=== PATIENT | female | born 1980 | race Caucasian/White ===

== ENCOUNTER 2024-05-08 16:31 | Emergency (ER) | payer SELFPAY ==
[~2024-05-08] VITALS: Ht 162.6 cm; Wt 63.5 kg
[2024-05-08] MEDS ORDERED: CLIN-141 PO (16:45)
[2024-05-08] MEDS ORDERED: IBUP-2077 PO (16:45)
--- NOTE | 2024-05-08 16:45 | ERN ---
ED Note History of Present Illness Stated Complaint: TOOTH PAIN Chief Complaint: Tooth Ache/Pain Time Seen by MD: 16:37 Dictation: PATIENT IS A 43-YEAR-OLD FEMALE COMING IN TODAY WITH LEFT UPPER MOLAR PAIN TENDERNESS AND DECAY SHE HAS HAD FOR A LONG TIME. SHE SAID IT JUST GOT WORSE YESTERDAY AND HAS NOT BEEN TO [place] ARE SEEN HER DENTIST HERE IN [place] FOR THE TREATMENT. HE HAS NOT TAKEN ANYTHING PRIOR TO ARRIVAL FOR PAIN NO FEVER NO CHILLS NO NAUSEA VOMITING. Past Medical History Past Medical History: No Pertinent History Surgical History: None PSYCH History: no pertinent psych hx History: Not Applicable RN Note Reviewed/Agreed w/PFSH: Yes Review of System Dictation CONSTITUTIONAL: NEGATIVE EXCEPT FOR HPI HEAD/FACE: NEGATIVE EXCEPT FOR HPI EENT: NEGATIVE EXCEPT FOR HPI DENTAL PAIN WITH GINGIVAL SWELLING RESPIRATORY: NEGATIVE EXCEPT FOR HPI GASTROINTESTINAL/ABDOMINAL: NEGATIVE EXCEPT FOR HPI GENITOURINARY: NEGATIVE EXCEPT FOR HPI MUSCULOSKELETAL: NEGATIVE EXCEPT FOR HPI INTEGUMENTARY: NEGATIVE EXCEPT FOR HPI NEUROLOGICAL/PSYCH: NEGATIVE EXCEPT FOR HPI HEMATOLOGIC/LYMPHATIC: NEGATIVE EXCEPT FOR HPI ALL SYSTEMS NEGATIVE, EXCEPT NOTED ABOVE. 13 POINT REVIEW OF SYSTEMS ASSESSED AND ALL NEGATIVE EXCEPT FOR ABOVE. Initial Vital Sign VS Vital Signs Date Time Temp Pulse Resp B/P (MAP) Pulse Ox O2 Delivery O2 Flow Rate FiO2 05/08/24 16:31 97.2 108 20 139/92 99 Room Air 0 Physical Exam Dictation VITAL SIGNS REVIEWED GENERAL APPEARANCE: ALERT, ORIENTED X 3, MILD ACUTE DISTRESS, WELL DEVELOPED, NOURISHED. HEAD AND FACE: NON-TRAUMATIC. EYES: PERRL, PINK CONJUNCTIVAS, EYELID NO TRAUMA, ANTERIOR CHAMBER WITH ARCUS SENILIS. EARS: PINNAS INTACT AND NO SIGNS OF TRAUMA OR ERYTHEMA EAR CANALS CLEAR AND NO DISCHARGE TM NO ERYTHEMA NOSE: NO DISCHARGE, NO BLEEDING. OROPHARYNX: DENTAL DECAY TOOTH NUMBER 16, MILD GINGIVAL ERYTHEMA PHARYNX CLEAR,NO ERYTHEMA, TONSILS NO EXUDATES, NO ABSCESSES NOTED, MUCOUS MEMBRANE MOIST NECK: SUPPLE, NON-TENDER, NO THYROMEGALY, NO MASSES, NO JVD, NO BRUITS BREAST:DEFERRED CHEST:NO TENDERNESS, NO CREPITUS, NO PARADOXICAL MOVEMENT, NO RETRACTIONS LUNGS:CLEAR, WELL-VENTILATED, SYMMETRIC, NO RALES, NO WHEEZING, NO RHONCHI, NO STRIDOR, GOOD BREATH SOUNDS BILATERALLY HEART: REGULAR RATE, REGULAR RHYTHM, NO MURMUR, NO GALLOPS VASCULAR: NO PERIPHERAL EDEMA, ABDOMEN: SOFT, POSITIVE BOWEL SOUNDS, NONDISTENDED, NO GUARDING, NONTENDER, NO REBOUND, NO MASSES NO HEPATOMEGALY, NO SPLENOMEGALY, NO TUCKER'S SIGN, NO HERNIAS. RECTAL: DEFERRED GENITAL: DEFERRED NEUROLOGICAL: NORMAL SPEECH, MOTOR FUNCTION INTACT, SENSORY FUNCTION INTACT MUSCULOSKELETAL: NECK NONTENDER, FULL RANGE OF MOTION, BACK NONTENDER, FULL RANGE OF MOTION, EXTREMITIES: NONTENDER, FULL RANGE OF MOTION SKIN: COLOR PINK, DRY, NO TURGOR, NO RASH, NO LACERATIONS, NO ABRASIONS, NO CONTUSIONS. LYMPHATIC: DEFERRED Results (Laboratory/Radiology) Labs Reviewed?: Yes ED Course ED Course Orders Procedure Category Date Status Time Ketorolac 60mg/2ml PHA 05/08/24 Verified (Toradol 60mg/2ml) 17:00 Vital Signs Date Time Temp Pulse Resp B/P (MAP) Pulse Ox O2 Delivery O2 Flow Rate FiO2 05/08/24 16:31 97.2 108 20 139/92 99 Room Air 0 1642, NO IMAGING OR LABS INDICATED AT THIS TIME. PATIENT WILL BE GIVEN TORADOL AND PRESCRIBED CLINDAMYCIN AND IBUPROFEN AND TOLD TO FOLLOW UP WITH A DOCTOR IN [place] OR SEE A LOCAL DENTIST WITH A AN AFTER HOURS EMERGENCY NUMBER. Medical Decision Making MDM MEDICAL DISCHARGE MAKING BASED ON EMPIRIC TREATMENT FOR DENTAL DECAY AND DENTALGIA. PATIENT GIVEN TORADOL IM DISCHARGED HOME WITH CLINDAMYCIN AND IBUPROFEN TOLD TO LOOKING THE YELLOW PAGES FOR A LOCAL DENTIST WITH A AN AFTER HOURS EMERGENCY NUMBER. DX & DISP Disposition: Discharge Departure Impression: Primary Impression: Dental caries extending into pulp Additional Impression: Dentalgia Condition: Stable Scripts Ibuprofen (Ibuprofen 800 mg Tab) 800 Mg Tab 800 MG PO Q8H PRN for fever or pain, #30 TAB 0 Refills Prov: ANYA DIEZ NP 05/08/24 Clindamycin HCl (Clindamycin HCl) 300 Mg Capsule 1 CAP PO QID for 10 Days, #40 CAP 0 Refills TAKE TWO CAPSULES FOR 1ST DOSE, THEN ONE CAPSULE EVERY 6 HOURS DIRECTED UNTIL GONE. 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 TAKE MEDICATIONS DIRECTED HERE IN THE EMERGENCY ROOM. OKAY TO CONTINUE HOME MEDICATIONS UNLESS OTHERWISE DISCUSSED DURING YOUR VISIT IN THE EMERGENCY ROOM TODAY. RETURN TO YOUR NEAREST EMERGENCY ROOM IF SYMPTOMS WORSEN OR IF THERE IS NO IMPROVEMENT. CALL 911 IF YOU NEED IMMEDIATE ASSISTANCE. TAKE TYLENOL OR MOTRIN [id number] NEEDED AND IF NO CONTRAINDICATIONS ARE PRESENT. INCREASE ORAL HYDRATION. A WOUND CULTURE OR URINE CULTURE WAS ORDERED HERE IN THE EMERGENCY ROOM DEPARTMENT PLEASE FOLLOW-UP WITH PRIMARY CARE PROVIDER AND ADVISE THEM TO GET REPEAT PORTS FROM OUR FACILITY. IF YOU HAD ANY JEVON WRAP/SPLINTS THAT WERE APPLIED HERE, PLEASE DO NOT REMOVE THEM UNTIL YOU SEE YOUR PRIMARY CARE OR SPECIALTY. TAKE ANTIBIOTICS DIRECTED UNTIL GONE., LOOKING THE YELLOW PAGES FOR A LOCAL DENTIST WITH A AN AFTER HOURS EMERGENCY NUMBER AND FOLLOW UP WITH HIM Time of Disposition: 16:43 I have reviewed the case, and I agree with, Diagnosis and Plan ANYA DIEZ NP May 08, 2024 16:45
[2024-05-08 16:50] VITALS: BP 141/62; PULSE 89; RESP 20; TEMP 98.7; O2SAT 99
[2024-05-08] MEDS ORDERED: ketOROlac 60 MG VIAL (30MG/ML) IM ONE (17:00)
== END 2024-05-08 16:53 | disposition home or self-care (01) ==
LOC: EDH 16:31
DX: K02.9 Dental caries, unspecified (principal)
CPT/HCPCS: 99283